=== PATIENT | male | born 1940 | race Caucasian/White ===

== ENCOUNTER 2024-07-14 16:28 | Inpatient (IN) | payer OTHER ==
--- NOTE | 2024-07-14 17:14 | RAD REPORT ---
EXAMINATION: Head Brain Wo Cont CLINICAL INDICATION: Male, 83 years old.ataxia TECHNIQUE: Axial CT images from the skull base to the vertex without intravenous contrast. Coronal an d sagittal reformatted images were created from the data set. One or more of the following dose reduction techniques were used: Automated exposure control, adjustment of the mA and/or kV according to patient size, and/or iterative reconstruction. Unless otherwise specified, incidental findings do not require dedicated imaging follow-up. [id number]. COMPARISON: No prior exam. FINDINGS: INTRACRANIAL: No acute intracranial hemorrhage. No hydrocephalus. No mass effect or midline shift. Mo derate chronic small vessel ischemic changes.Mild cerebral atrophy. Remote appearing bilateral deep white matter and basal ganglia/thalamic lacunar infarcts as well as bilateral cerebellar infarcts. VASCULATURE: No visualized abnormalities in the arteries or dural venous sinuses. SCALP/SKULL: No calvarial fracture identified. No acute soft tissue abnormality. SINUSES: The visualized paranasal sinuses are mostly clear. No significant mastoid fluid. IMPRESSION: No definite acute intracranial abnormality. Likely remote appearing bilateral deep white matter, basa l ganglia, and cerebellar infarcts. MRI could better establish acuity if clinically indicated.
--- NOTE | 2024-07-14 17:23 | RAD REPORT ---
EXAM: Chest Single View HISTORY: 83 years Male ataxia, aphasia COMPARISON: None. FINDINGS: LUNGS/PLEURA: The lungs are clear. No pleural effusions or pneumothorax. No pulmonary edema. CARDIAC/MEDIASTINUM: The cardiac silhouette is within normal limits. UPPER ABDOMEN: No significant abnormality. BONES: No acute abnormality. LINES/TUBES/OTHER: N/A IMPRESSION: No evidence of acute cardiopulmonary disease.
[2024-07-14 18:02] LABS: Absolute Eosinophils 0.2 K/uL (0-0.5); Absolute Lymphocytes (CBC) 1.2 K/uL (0.7-4.9); Absolute Monocytes 0.7 K/uL (0.1-1.3); Absolute Neutrophil 4.8 K/uL (1.8-8.0); Basophils % 0.7 % (0-1.3); Eosinophils % 2.3 % (0-4.4); Hematocrit 40.4 % (39.6-49.0); Hemoglobin 13.8 g/dL (13.6-17.9); Lymphocytes % 17.5 % (15.3-44.8); MCH 32.4 pg (27.0-35.0); MCHC 34.2 g/dL (32.0-36.0); MCV 94.5 fL (80-100); Monocytes % 9.6 % (3.3-12.3); Neutrophils % 69.9 % (41.7-73.7); Nucleated Red Blood Cells % 0.1 % (0-0); Platelets 200 thou/uL (152-406); RBC Red Blood Cell Count 4.27 M/uL (4.33-5.43); Red Cell Distribution Width 13.6 % (12.1-15.2)
[2024-07-14 18:14] LABS: PT Prothrombin Time 10.8 SECONDS (10-13.0); PTT, Activated Partial Thromb 31.2 SECONDS (27.2-37.4); Protime INR 0.94
[2024-07-14 18:20] LABS: Anion Gap 7.4 mEq/L (5.0-15.0); Potassium 4.4 mEq/L (3.5-5.1); Troponin High Sensitivity 18.8 pg/mL (<58.9)
--- NOTE | 2024-07-14 18:44 | EDPHYS ---
Physician Documentation [facility] Name: Tristin Sanders Age: 83 yrs Sex: Male : 1940 Arrival Date: 07/14/2024 Time: 16:28 Bed 24 Private MD: ED Physician Black Ruiz HPI: 07/14 16:43 This 83 yrs old Male presents to ER via Ambulatory with complaints of Slurred Speech, ms3 Trouble Walking. 16:43 83-year-old male with past medical history of diabetes presents to the emergency ms3 department for slurred speech and trouble walking that has been ongoing for 4 to 5 days. Patient denies pain. Patient denies nausea or vomiting. Patient's states they called their primary care physician, Dr. Cage, who referred patient to the emergency department for concern of stroke.. Historical: - Allergies: 16:42 No Known Allergies; ld1 - PMHx: 16:42 Diabetes mellitus; ld1 - Immunization history:: Adult Immunizations up to date. - Infectious Disease History:: Denies. - Social history:: Smoking status: Patient denies any tobacco usage or history of. ROS: 16:43 Constitutional: Negative for fever, and chills. Cardiovascular: Negative for chest ms3 pain, and palpitations. Respiratory: Negative for shortness of breath, cough, wheezing, and pleuritic chest pain, Abdomen/GI: Negative for abdominal pain, nausea, vomiting, diarrhea, and constipation, Skin: Negative for injury, rash, and discoloration, 16:43 Neuro: Positive for Ataxia, Exam: 16:43 Constitutional: This is a well developed, well nourished patient who is awake, alert, ms3 and in no acute distress. Cardiovascular: Regular rate and rhythm with a normal S1 and S2. No gallops, murmurs, or rubs. Normal PMI, no JVD. No pulse deficits. Respiratory: Lungs have equal breath sounds bilaterally, clear to auscultation and percussion. No rales, rhonchi or wheezes noted. No increased work of breathing, no retractions or nasal flaring. Abdomen/GI: Soft, non-tender, with normal bowel sounds. No distension or tympany. No guarding or rebound. No evidence of tenderness throughout. Skin: Warm, dry with normal turgor. Normal color with no rashes, no lesions, and no evidence of cellulitis. 16:43 Neuro: Orientation: to person, place, time \T\ situation. Mentation: is normal, Memory: is normal, Cerebellar function: normal finger to nose testing, Gait: is unsteady, 19:19 ECG was reviewed by the Attending Physician. ms3 Vital Signs: 16:40 BP 142 / 89; Pulse 89; Resp 18; Temp 97.3(TE); Pulse Ox 100% on R/A; Weight 68.95 kg; ld1 Height 6 ft. 1 in. ; Pain 0/10; 20:00 BP 126 / 85; Pulse 88; Resp 18; Temp 98; Pulse Ox 96% on R/A; Pain 0/10; rg5 16:40 Body Mass Index 20.05 (68.95 kg, 185.42 cm) ld1 16:40 Pain Scale: Adult ld1 20:00 Pain Scale: Adult rg5 NIH Stroke Scale Scores: 16:43 NIHSS Score: 0 ms3 20:00 NIHSS Score: 0 rg5 MDM: 16:42 Medical Screening Exam initiated ms3 19:04 Data reviewed: vital signs, nurses notes, lab test result(s), EKG, radiologic studies, ms3 and as a result, I will admit patient. Consideration of Admission/Observation Patient was admitted/placed on observation. Management of patient was discussed with the following: Hospitalist: Dr Cage. I considered the following discharge prescriptions or medication management in the emergency department Medications were administered in the Emergency Department. See MAR. Independent interpretation of the following test(s) in the Emergency Department EKG: See my EKG interpretation above. Historians other than the Patient: Family Member: Daughter. Counseling: I had a detailed discussion with the patient and/or guardian regarding the historical points, exam findings, and any diagnostic results supporting the discharge/admit diagnosis, lab results, radiology results, the need for further work-up and treatment in the hospital. ED course: Case discussed with Dr. Cage. Discussed necessity for admission with patient and his family and they understand and agree with plan. All questions were answered.. 07/14 16:42 Order name: Basic Metabolic Panel; Complete Time: 18:26 ms3 07/14 16:42 Order name: CBC with Diff; Complete Time: 18:26 ms3 07/14 16:42 Order name: High Sensitivity Troponin; Complete Time: 18:26 ms3 07/14 16:42 Order name: Protime (+inr); Complete Time: 18:26 ms3 07/14 16:42 Order name: Ptt, Activated; Complete Time: 18: ms3 07/14 18:53 Order name: Creatine Phosphokinase EDMS 07/14 18:53 Order name: Creatine Phosphokinase EDMS 07/14 18:53 Order name: Lipid Profile EDMS 07/14 18:53 Order name: Lipid Profile EDMS 07/14 18:53 Order name: Troponin High Sensitivity EDMS 07/15 10:57 Order name: Troponin High Sensitivity EDMS 07/14 16:42 Order name: CT Head Brain wo Cont; Complete Time: 17:29 ms3 07/14 16:42 Order name: CXR XRAY; Complete Time: 17: ms3 07/14 18:53 Order name: IRF Screen EDSC 07/14 16:42 Order name: Accucheck; Complete Time: 20:42 ms3 07/14 16:42 Order name: Cardiac monitoring; Complete Time: 20:42 ms3 07/14 16:42 Order name: EKG - Nurse/Tech; Complete Time: 17:58 ms3 07/14 16:42 Order name: IV Saline Lock; Complete Time: 17:57 ms3 07/14 16:42 Order name: Labs collected and sent; Complete Time: 17:57 3 07/14 16:42 Order name: NPO; Complete Time: 20:42 ms3 07/14 16:42 Order name: O2 Per Protocol; Complete Time: 20:42 ms3 07/14 16:42 Order name: O2 Sat Monitoring; Complete Time: 20:42 ms3 07/14 16:42 Order name: Stroke Swallow Screen; Complete Time: 20:42 ms3 EC:19 Rate is 86 beats/min. Rhythm is regular. QRS Capron is Normal. CT interval is normal. QRS ms3 interval is normal. Clinical impression: NSR w/ Non-specific ST/T Changes. Interpreted by me. Reviewed by me. Administered Medications: No medications were administered Disposition Summary: 07/14/24 18:43 Hospitalization Ordered Notes: Hospitalization Status: Inpatient Admission ms3 Provider: Eric Cage ms3 Condition: Stable ms3 Problem: new ms3 Symptoms: are unchanged ms3 Bed/Room Type: Standard ms3 Location: Telemetry/MedSurg (Inpatient)(07/15/24 10:56) bd Room Assignment: 427(07/15/24 10:56) bd Diagnosis - Ischemic stroke ms3 - Ataxia, unspecified ms3 - Slurred speech ms3 Forms: - Medication Reconciliation Form ms3 - SBAR form ms3 - Leadership Thank You Letter ms3 NIH Stroke Scale - NIH Stroke Score Date: 07/14/2024 Time: 16:43 Total Score = 0 10. Dysarthria (speech clarity - read or repeat words) - 0(Normal) 11. Extinction and Inattention (visual/tactile/auditory/spatial/personal) - 0(No abnormality) 1a. Level of Consciousness (LOC) - 0(Alert) 1b. Level of Consciousness (LOC) (Month \T\ Age) - 0(Both) 1c. LOC Commands (Open \T\ Closes Eyes/Box Closing Machine Operator) - 0(Both) 2. Best Gaze (Lateral Gaze Paresis) - 0(Normal) 3. Visual Field Loss - 0(No visual loss) 4. Facial Palsy - 0(Normal) 5a. Left Arm: Motor (10-second hold) - 0(No drift) 5b. Right Arm: Motor (10-second hold) - 0(No drift) 6a. Left Leg: Motor (5-second hold - always test supine) - 0(No drift) 6b. Right Leg: Motor (5-second hold - always test supine) - 0(No drift) 7. Limb Ataxia (finger/nose \T\ heel/cervantes - test with eyes open) - 0(Absent) 8. Sensory Loss (pinprick arms/legs/face) - 0(Normal) 9. Best Language: Aphasia (description/naming/reading) - 0(No aphasia) Initials: ms3 NIH Stroke Scale - NIH Stroke Score Date: 07/14/2024 Time: 20:00 Total Score = 0 10. Dysarthria (speech clarity - read or repeat words) - 0(Normal) 11. Extinction and Inattention (visual/tactile/auditory/spatial/personal) - 0(No abnormality) 1a. Level of Consciousness (LOC) - 0(Alert) 1b. Level of Consciousness (LOC) (Month \T\ Age) 1c. LOC Commands (Open \T\ Closes Eyes/Box Closing Machine Operator) - 0(Both) 2. Best Gaze (Lateral Gaze Paresis) - 0(Normal) 3. Visual Field Loss - 0(No visual loss) 4. Facial Palsy - 0(Normal) 5a. Left Arm: Motor (10-second hold) - 0(No drift) 5b. Right Arm: Motor (10-second hold) - 0(No drift) 6a. Left Leg: Motor (5-second hold - always test supine) - 0(No drift) 6b. Right Leg: Motor (5-second hold - always test supine) - 0(No drift) 7. Limb Ataxia (finger/nose \T\ heel/cervantes - test with eyes open) - 0(Absent) 8. Sensory Loss (pinprick arms/legs/face) - 0(Normal) 9. Best Language: Aphasia (description/naming/reading) - 0(No aphasia) Initials: rg5 Signatures: Dispatcher [employer] EDMS Lazara Sotelo Marcus, DO DO ms3 Ashlee Ruiz RN RN ld1 Omayra Regalado RN RN vc1 Corrections: (The following items were deleted from the chart) 16:42 16:42 PMHx: None; ld1 ld1 16:43 16:43 BASIC METABOLIC PANEL+C.LAB.BRZ ordered. EDMS EDMS 16:43 16:43 CBC+H.LAB.BRZ ordered. EDMS EDMS 16:43 16:43 Troponin High Sensitivity+C.LAB.BRZ ordered. EDMS EDMS 16:43 16:43 PROTIME (+INR)+COAG.LAB.BRZ ordered. EDMS EDMS 16:43 16:43 PTT, ACTIVATED+COAG.LAB.BRZ ordered. EDMS EDMS 16:43 16:43 Head Brain Wo Cont+CT.RAD.BRZ ordered. EDMS EDMS 16:43 16:43 Chest Single View+RAD.RAD.BRZ ordered. EDMS EDMS 21:03 18:43 Telemetry/MedSurg (Inpatient) ms3 vc1 21:03 18:43 ms3 vc1 07/15 10:56 07/14 21:03 [facility] ER HOLD vc1 bd 07/15 10:56 07/14 21:03 ERHOLD- vc1 bd
--- NOTE | 2024-07-14 18:44 | ER ---
Nurse's Notes [facility] Name: Tristin Sanders Age: 83 yrs Sex: Male : 1940 Arrival Date: 07/14/2024 Time: 16:28 Bed 24 Private MD: Diagnosis: Ischemic stroke;Ataxia, unspecified;Slurred speech Presentation: 07/14 16:41 Chief complaint: Spouse and/or significant other states: 3 days ago patient became ld1 wobbly and falling down - speech became slurred. Coronavirus screen: At this time, the client does not indicate any symptoms associated with coronavirus-19. Ebola Screen: No symptoms or risks identified at this time. Initial Sepsis Screen: Does the patient meet any 2 criteria? No. Patient's initial sepsis screen is negative. Does the patient have a suspected source of infection? No. Patient's initial sepsis screen is negative. Risk Assessment: Do you want to hurt yourself or someone else? Patient reports no desire to harm self or others. Onset of symptoms was July 14, 2024. 16:41 Method Of Arrival: Ambulatory ld1 16:41 Acuity: MELISA 2 ld1 20:00 No acute neurological deficit is noted. rg5 Triage Assessment: 16:45 The onset of the patients symptoms was July 11, 2024 at 15:00. General: Appears in no ld1 apparent distress. comfortable, Behavior is calm, cooperative, appropriate for age. Pain: Denies pain. EENT: No signs and/or symptoms were reported regarding the EENT system. Neuro: Level of Consciousness is awake, alert, obeys commands, Oriented to person, place, time, situation, Reports weakness. Cardiovascular: Capillary refill < 3 seconds Patient's skin is warm and dry. Respiratory: Airway is patent Respiratory effort is even, unlabored. GI: Abdomen is flat, non-distended. : No signs and/or symptoms were reported regarding the genitourinary system. Derm: No signs and/or symptoms reported regarding the dermatologic system. Musculoskeletal: No signs and/or symptoms reported regarding the musculoskeletal system. Historical: - Allergies: 16:42 No Known Allergies; ld1 - PMHx: 16:42 Diabetes mellitus; ld1 - Immunization history:: Adult Immunizations up to date. - Infectious Disease History:: Denies. - Social history:: Smoking status: Patient denies any tobacco usage or history of. Screenin:00 [facility] ED Fall Risk Assessment (Adult) History of falling in the last 3 months, rg5 including since admission Yes- single mechanical fall (1 pt) Confusion or Disorientation No (0 pts) Intoxicated or Sedated No (0 pts) Impaired Gait Yes (1 pt) Mobility Assist Device Used Yes (1 pt) Altered Elimination No (0 pt) Score/Fall Risk Level 3 or more points = High Risk Oriented to surroundings, Maintained a safe environment, Educated pt \T\ family on fall prevention, incl call for assistance when getting out of bed, Hourly rounding (assess needs \T\ fall precautionary measures) done, Used ambulatory aids as needed (educated on \T\ assisted with). Abuse screen: Denies threats or abuse. Nutritional screening: No deficits noted. 20:00 Tuberculosis screening: No symptoms or risk factors identified. rg5 Assessment: 20:00 VAN Scoring: Arm Drift: Patients demonstrates NO arm weakness. Patient is VAN Negative. rg5 Visual Disturbance: No visual disturbance noted. Aphasia: No aphasia noted. [place] Swallow Protocol 3 oz Water Swallow Challenge:. 20:00 [place] Swallow Protocol Exclusion Criteria: Exclusion Criteria Result: Brief Cognitive rg5 Screen What is your name? Normal, Where are you right now? Normal, What year is it? Normal. Oral Mechanism Examination Facial Symmetry: Normal, Motion: Normal, Lip Closure: Normal, Oral Mechanism Result: Normal. Result: PASS MD Notified: Shanna Brown MD. Vital Signs: 16:40 BP 142 / 89; Pulse 89; Resp 18; Temp 97.3(TE); Pulse Ox 100% on R/A; Weight 68.95 kg; ld1 Height 6 ft. 1 in. ; Pain 0/10; 20:00 BP 126 / 85; Pulse 88; Resp 18; Temp 98; Pulse Ox 96% on R/A; Pain 0/10; rg5 16:40 Body Mass Index 20.05 (68.95 kg, 185.42 cm) ld1 16:40 Pain Scale: Adult ld1 20:00 Pain Scale: Adult rg5 NIH Stroke Scale Scores: 16:43 NIHSS Score: 0 ms3 20:00 NIHSS Score: 0 rg5 ED Course: 16:31 Patient arrived in ED. cj3 16:32 Black Ruiz DO is Attending Physician. ms3 16:42 Triage completed. ld1 16:45 Arm band placed on right wrist. ld1 16:59 CT Head Brain wo Cont In Process Unspecified. EDMS 17:02 Ashlee Ruiz, RN is Primary Nurse. ld1 17:21 CXR XRAY In Process Unspecified. EDMS 17:57 Basic Metabolic Panel Sent. bc6 17:57 CBC with Diff Sent. bc6 17:58 High Sensitivity Troponin Sent. bc6 17:58 Protime (+inr) Sent. bc6 17:58 Ptt, Activated Sent. bc6 17:58 Initial lab(s) drawn, by me, sent to lab. EKG done, by ED staff, reviewed by Black Ruiz DO. Inserted saline lock: 20 gauge in left forearm, using aseptic technique. Blood collected. Flushed with 10 mL NS. 18:43 Eric Cage MD is Hospitalizing Provider. ms3 19:37 Ramez Duran, RN is Primary Nurse. rg5 20:00 Patient has correct armband on for positive identification. Placed in gown. Bed in low rg5 position. Call light in reach. Side rails up X 1. Provided Education on: needs for admit. Door closed. Noise minimized. Verbal reassurance given. 20:00 No provider procedures requiring assistance completed. Patient admitted, IV remains in rg5 place. intact, No redness/swelling at site. Administered Medications: No medications were administered Medication: 20:00 VIS not applicable for this client. rg5 Outcome: 18:43 Decision to Hospitalize by Provider. ms3 20:00 Admitted to ER Hold. Please see [facility] for further documentation. rg5 20:00 Condition: stable 20:00 Instructed on the need for admit, 07/15 13:27 Patient left the ED. ll1 NIH Stroke Scale - NIH Stroke Score Date: 07/14/2024 Time: 16:43 Total Score = 0 10. Dysarthria (speech clarity - read or repeat words) - 0(Normal) 11. Extinction and Inattention (visual/tactile/auditory/spatial/personal) - 0(No abnormality) 1a. Level of Consciousness (LOC) - 0(Alert) 1b. Level of Consciousness (LOC) (Month \T\ Age) - 0(Both) 1c. LOC Commands (Open \T\ Closes Eyes/Restaurant Maintenance Technician) - 0(Both) 2. Best Gaze (Lateral Gaze Paresis) - 0(Normal) 3. Visual Field Loss - 0(No visual loss) 4. Facial Palsy - 0(Normal) 5a. Left Arm: Motor (10-second hold) - 0(No drift) 5b. Right Arm: Motor (10-second hold) - 0(No drift) 6a. Left Leg: Motor (5-second hold - always test supine) - 0(No drift) 6b. Right Leg: Motor (5-second hold - always test supine) - 0(No drift) 7. Limb Ataxia (finger/nose \T\ heel/cervantes - test with eyes open) - 0(Absent) 8. Sensory Loss (pinprick arms/legs/face) - 0(Normal) 9. Best Language: Aphasia (description/naming/reading) - 0(No aphasia) Initials: ms3 NIH Stroke Scale - NIH Stroke Score Date: 07/14/2024 Time: 20:00 Total Score = 0 10. Dysarthria (speech clarity - read or repeat words) - 0(Normal) 11. Extinction and Inattention (visual/tactile/auditory/spatial/personal) - 0(No abnormality) 1a. Level of Consciousness (LOC) - 0(Alert) 1b. Level of Consciousness (LOC) (Month \T\ Age) 1c. LOC Commands (Open \T\ Closes Eyes/Restaurant Maintenance Technician) - 0(Both) 2. Best Gaze (Lateral Gaze Paresis) - 0(Normal) 3. Visual Field Loss - 0(No visual loss) 4. Facial Palsy - 0(Normal) 5a. Left Arm: Motor (10-second hold) - 0(No drift) 5b. Right Arm: Motor (10-second hold) - 0(No drift) 6a. Left Leg: Motor (5-second hold - always test supine) - 0(No drift) 6b. Right Leg: Motor (5-second hold - always test supine) - 0(No drift) 7. Limb Ataxia (finger/nose \T\ heel/cervantes - test with eyes open) - 0(Absent) 8. Sensory Loss (pinprick arms/legs/face) - 0(Normal) 9. Best Language: Aphasia (description/naming/reading) - 0(No aphasia) Initials: rg5 Signatures: Dispatcher [employer] EDSaranya Perez, RN RN ll1 Black Ruiz, DO LEMONS ms3 Ashlee Ruiz RN RN ld1 Maria T Godoy 6 Ramez Duran RN RN rg5 Layne Holley cj3 Corrections: (The following items were deleted from the chart) 07/14 16:42 16:42 PMHx: None; ld1 ld1 07/15 02:43 07/14 20:00 NIHSS Score: 1 rg5 nati5
[2024-07-14] MEDS: NA CHLORIDE 0.9% 1,000 ML IV SCH (22:03)
[2024-07-14] MEDS ORDERED: NA CHLORIDE 0.9% 1,000 ML ONE (22:05)
[2024-07-15] MEDS: CLOPIDOGREL 75 MG TABLET PO SCH (09:00)
[2024-07-15] MEDS: ASPIRIN EC 81 MG TAB PO SCH (09:00)
[2024-07-15] MEDS: FOLIC ACID 1 MG TABLET PO SCH (09:00)
[2024-07-15] MEDS ORDERED: CLOPIDOGREL 75 MG TABLET ONE (09:57)
[2024-07-15] MEDS ORDERED: FOLIC ACID 1 MG TABLET ONE (09:58)
[2024-07-15] MEDS ORDERED: ASPIRIN EC 81 MG TAB PO ONE (09:58)
[2024-07-15 10:57] LABS: Troponin High Sensitivity 16.1 pg/mL (<58.9)
--- NOTE | 2024-07-15 12:14 | P.HP ---
Patient History Date of Service: 07/15/24 Reason for admission: APHASIA, UNSTEADY GAIT History of Present Illness: CHELLE IS A DIABETIC WITH HTN IN GOOD CONTROL. HE HAS HAD EXPRESSION ISSUES WITH SPEECH AND UNSTEADY GAIT. HE REFUSED TO GO TO ER UNTIL FAMILY CALLED HERE AND I TALKED TO HIM. HE IS ALREADY HAVING SS FOR ABOUT A WEEK. HE IS STABLE AND THE SPEECH IS BACK TO NORMAL NOW. Allergies No Known Allergies Allergy (Unverified 07/14/24 20:28) Home Medications: Losartan Potassium 50 mg PO DAILY 07/15/24 Metformin HCl [Glucophage] 500 mg PO BIDWM 07/15/24 - Social History Smoking Status: Never smoker Review of Systems 10-point ROS is otherwise unremarkable Physical Examination - Vital Signs Temperature: 98 F Blood Pressure: 145/82 Pulse: 78 Respirations: 17 Pulse Ox (%): 98 - Physical Exam General: Alert, In no apparent distress HEENT: Atraumatic, PERRLA, Mucous membr. moist/pink, EOMI, Sclerae nonicteric Neck: Supple, 2+ carotid pulse no bruit, No LAD, Without JVD or thyroid abnormality Respiratory: Clear to auscultation bilaterally, Normal air movement Cardiovascular: Regular rate/rhythm, Normal S1 S2 Gastrointestinal: Normal bowel sounds, No tenderness Musculoskeletal: No tenderness Integumentary: No rashes Neurological: Normal gait, Normal speech, Normal strength at 5/5 x4 extr, Normal tone, Normal affect Lymphatics: No axilla or inguinal lymphadenopathy - Studies Laboratory Data (last 24 hrs) 07/14/24 07/14/24 07/14/24 17:50 17:50 17:50 WBC 6.80 Hgb 13.8 Hct 40.4 Plt Count 200 PT 10.8 INR 0.94 APTT 31.2 Sodium 138 Potassium 4.4 BUN 21 H Creatinine 0.93 Glucose 151 H Assessment and Plan - Problems (Diagnosis) (1) Expressive aphasia Current Visit: Yes Status: Acute Plan: ASA AND PLAVIX CONSULT DR. Cobian MRI STROKE PROTOCOL. L SIDE BRAIN STROKE MAY BE FOUND. (2) Unstable gait Current Visit: Yes Status: Acute (3) Diabetic vasculopathy Current Visit: Yes Status: Acute - Advance Directives Does patient have a Living Will: No Does patient have a Durable POA for Healthcare: No
[2024-07-15 12:17] VITALS: O2SAT 98
--- NOTE | 2024-07-15 12:35 | EKG ---
Test Date: 2024-07-14 Test Time: 18:06:59 Reading Intervention Teacher: NEFTALI MEASUREMENT RESULTS: Intervals: Rate: 86 NH: 158 QRSD: 88 QT: 382 QTc: 457 [place]: P: 31 NH: 158 QRS: -16 T: 71 INTERPRETIVE STATEMENTS: Sinus rhythm with premature supraventricular complexes Nonspecific ST and T wave abnormality Abnormal ECG Compared to ECG 01/05/2002 12:36:00 Atrial premature complex(es) now present ST (T wave) deviation now present Electronically Signed On 07-15-24 12:33:39 CDT by Masoud Holguin
--- NOTE | 2024-07-15 14:49 | RAD REPORT ---
EXAMINATION: Brain Wo Cont CLINICAL INDICATION: Male, 83 years old. slurred speech TECHNIQUE: Multiplanar multisequence MR images of the brain were obtained without intravenous contras t. Unless otherwise specified, incidental findings do not require dedicated imaging follow-up. [id number]. COMPARISON: Same-day head CT FINDINGS: INTRACRANIAL: Multiple foci of acute infarct in the right cerebellar hemisphere. No other acute infar cts identified. There is associated T2/FLAIR hyperintensity. There is low signal on ADC. No significant mass effect or midline shift.No hydrocephalus. Moderate chronic small vessel ischemic ch anges.Mild cerebral atrophy. Remote bilateral basal ganglia and deep white matter lacunar infarcts. Tiny remote left cerebellar infarcts. VASCULATURE: Normal signal voids in the larger intracranial arteries and dural venous sinuses. SINUSES: The paranasal sinuses are predominantly clear.No mastoid effusions. BONE: The marrow signal pattern is within normal limits. IMPRESSION: Acute infarcts present in the right cerebellar hemisphere. No other acute infarcts identified. Sequela of remote infarcts as well as moderate chronic small vess el ischemic changes.
[2024-07-15] MEDS ORDERED: cloNIDine HCL 0.1 MG TAB PO PRN (15:18)
[2024-07-15 16:29] VITALS: BP 140/84; TEMP 97.8
[2024-07-15] MEDS: METFORMIN HCL 500 MG TAB PO SCH (16:45)
[2024-07-15] MEDS ORDERED: ROSUVASTATIN 10 MG TAB PO SCH (21:00)
--- NOTE | 2024-07-16 01:39 | CON ---
Reason For Consultation: Consultation called because of a stroke. History Of Present Illness: Mr. Sanders is an 83-year-old patient with hypertension and diabetes [facility], who is not on anti-platelet medications, who was at home 2 days ago and he developed difficulty w ith his balance, coordination, and speech. He initially refused to go to the emergency room, but his family called Dr. Cage, his primary care physician, and he was advised to come to the emergency [facility]. Symptoms have been going on for a total of about a week off and on. However, at the time of arri andrew to the emergency room, his speech returned, but still had some incoordination and balance difficu lty. His CT scan of the head done on 07/14/2024 at 1642 hours showed no definite acute intracranial abnormalities, likely a remote appearing bilateral deep white matter and basal ganglia and cerebellar infarcts could be seen. The brain MRI done the following day identified acute infarcts in the right cerebellar hemisphere. No other acute infarcts were identified. There were sequelae of remote infa rcts as well as moderate chronic small vessel ischemic disease identified. These were seen again in bilateral basal ganglia and a deep white matter and also a small area in the left cerebellum with the acute stroke in the right cerebellum and there were multiple foci. The electrocardiogram showed sinus rhythm with premature ventricular complex, nonspecific ST and T-wa ve abnormalities. Laboratory Studies: Show an essentially unremarkable complete blood count differential and normal IN R of 0.94. Lipid panel was normal. LDL 51, HDL 55, cholesterol to HDL ratio 2.27. Sodium, potassiu m chloride all normal. BUN 21, creatinine 0.92, glucose ranged 105 to 151, calcium 9.0. His troponi n 1 was normal at 16.1, triglycerides 94. Allergies: NO KNOWN DRUG ALLERGIES. Past Medical History: As noted above. Medications: Since hospitalized, he is now on aspirin 81 mg daily, Plavix 75 mg daily, folic acid 1 mg daily. He did have, while hospitalized also, metformin 500 mg twice daily, Crestor 10 mg at [facility], Cozaar 50 mg daily. Family History: Noncontributory. Social History: No alcohol, tobacco, or IV drug use. The patient lives at home with family includin g . Review of Systems: Again, no findings aside from difficulty with speech, balance, coordination, which have improved. De nies any myalgias, arthralgias, rash or psychiatric issues. Physical Examination: Vital Signs: Blood pressure is 140/84, pulse 79, respiratory rate 16, temperature 97.8, oxygen satur ation 97%, weight 152 pounds, height 6 feet 1 inch, BMI 20. General: Mr. Sanders is doing very well. HEENT: He is normocephalic, atraumatic. Sclerae are anicteric. Oropharynx is pink and moist. Neck: Supple. Chest: Clear. Heart: Regular. Extremities: Show no significant clubbing, cyanosis, or edema. Neurological: He is alert oriented to person, place, time, situation. Follows all commands appropri ately. His cranial nerves show no focal deficits. Coordination intact in upper and lower extremitie s. Very subtle dysmetria noted in the right upper extremity, otherwise intact. Left lower extremity , normal [id number]. In terms of motor, he has full strength 5/5 proximally and distally in upper and lower extremities. Sensation intact in upper and lower extremities with mild stocking-glove loss . Reflexes symmetric in upper and lower extremities. Gait normal stride, stance, and arm swing. He has mild difficulty with tandem gait. Assessment And Plan: Mr. Sanders is an 83-year-old patient with stroke risk factors, hypertension, and diabetes mellitus well controlled, dyslipidemia. The patient had multiple small strokes, posterior c irculation, but also in the basal ganglia, these strokes are likely to be related to hypertension as they are small vessel ischemic strokes. He should be maintained on aspirin and Plavix along with fol ic acid, statin, and mild permissive hypertension for the next week. The patient may benefit from so pa outpatient physical therapy. After his discharge, he should follow up in Dr. Umaña's clinic in 1 month and so plan will be to discharge today, follow up in Dr. Umaña's clinic in a month. Cont inue medications as noted above. The patient was advised on diet and exercise and hydration modifica tions along with rest and supplements to reduce his risk of additional strokes. LB/MODL Voice ID: [id number] Report ID: [id number]
[2024-07-16] MEDS ORDERED: LOSARTAN POTASSIUM 50 MG TABLET PO SCH (09:00)
[2024-07-16] MEDS ORDERED: FOLIC ACID 1 MG TABLET PO SCH (09:00)
[2024-07-16] MEDS ORDERED: CLOPIDOGREL 75 MG TABLET PO SCH (09:00)
[2024-07-16] MEDS ORDERED: ASPIRIN 81 MG CHEWABLE TABLET PO SCH (09:00)
== END 2024-07-15 18:27 | disposition home or self-care (01) | DRG 66 ==
LOC: ER 16:28 → ERHOLD 18:48 → 4TH 07-15 11:44
PROVIDERS: ADMIT Internal Medicine; ATTEND Internal Medicine
DX: I63.9 Cerebral infarction, unspecified (principal); E11.9 Type 2 diabetes mellitus without complications; E78.5 Hyperlipidemia, unspecified; R47.01 Aphasia; R29.700 NIHSS score 0; R27.0 Ataxia, unspecified; Z79.84 Long term (current) use of oral hypoglycemic drugs; Z79.899 Other long term (current) drug therapy
CPT/HCPCS: 36415; 70450; 70551; 71045; 80048; 80061; 82550; 82947; 84484; 85025; 85610; 85730; 93005; 97112; 97116; 97161; 97530; 99285; J7030

== ENCOUNTER 2024-12-28 15:30 | Inpatient (IN) | payer OTHER ==
[2024-12-28] MEDS ORDERED: MAGNESIUM HYDROXIDE 8% 30 ML PO PRN (20:29)
[2024-12-28] MEDS: ASPIRIN 325 MG TAB PO SCH (20:38)
[2024-12-28] MEDS: ROSUVASTATIN 10 MG TAB PO SCH (21:00)
[2024-12-28] MEDS: FAMOTIDINE 20 MG TAB PO SCH (21:00)
[2024-12-28] MEDS ORDERED: MEMANTINE HCL 10 MG TABLET ONE (21:05)
[2024-12-28 23:18] LABS: Urine Microscopic Reflex YN NO UMIC
[2024-12-29 06:49] LABS: Absolute Lymphocytes (CBC) 1.8 K/uL (0.7-4.9); Hematocrit 34.6 % (39.6-49.0); Hemoglobin 12.1 g/dL (13.6-17.9); MCH 33.1 pg (27.0-35.0); MCHC 34.9 g/dL (32.0-36.0); MCV 94.9 fL (80-100); MPV 9.9 fL (7.6-11.3); Nucleated RBC Absolute Count 0.0 (0-0); Nucleated Red Blood Cells % 0.0 % (0-0); RBC Red Blood Cell Count 3.64 M/uL (4.33-5.43); White Blood Count 8.10 thou/uL (4.3-10.9)
[2024-12-29 07:11] LABS: Albumin 3.2 g/dL (3.4-5.0); Anion Gap 10.1 mEq/L (5.0-15.0); BUN Blood Urea Nitrogen 35.0 mg/dL (7-18); Glucose Level 89.0 mg/dL (74-106); Magnesium 2.1 mg/dL (1.6-2.4); Potassium 4.1 mEq/L (3.5-5.1); Prealbumin 19.2 mg/dL (20-40)
[2024-12-29] MEDS ORDERED: FAMOTIDINE 20 MG TAB PO SCH (08:00)
[2024-12-29] MEDS: MYRBETRIQ 50 MG PO SCH (08:00)
[2024-12-29] MEDS: FOLIC ACID 1 MG TABLET PO SCH (08:39)
[2024-12-29] MEDS: GLIMEPIRIDE 2 MG TABLET PO SCH (08:39)
[2024-12-29] MEDS: ESCITALOPRAM 20 MG TAB PO SCH (08:39)
[2024-12-29] MEDS: VITAMIN D 1000 UNIT TAB PO SCH (08:40)
[2024-12-29] MEDS: LOSARTAN POTASSIUM 50 MG TABLET PO SCH (08:40)
[2024-12-29] MEDS: CLOPIDOGREL 75 MG TABLET PO SCH (08:40)
[2024-12-29] MEDS: predniSONE 10 MG TAB PO SCH (08:40)
[2024-12-29] MEDS: MEMANTINE HCL 10 MG TABLET PO SCH (08:40)
[2024-12-29] MEDS ORDERED: ASPIRIN 325 MG TAB PO SCH ×2 (17:00)
--- NOTE | 2024-12-30 00:42 | HP ---
Date of Admission: 12/28/2024 Time: 1 p.m. Chief Complaint: "I had a stroke, I need to get strong, get back home." History Of Present Illness: Mr. Sanders is an 84-year-old patient with stroke risk factors, dyslipidemi a, aortic stenosis, aortic aneurysm in his thoracic region, aortic regurgitation, pulmonary hypertens ion, diabetes mellitus with neuropathy, who began experiencing loss of balance, incoordination, and w as found to have the stroke back in June of 2024. He did recover very well and subsequently had hea rt valve replacement, after which he had even worse gait, balance, coordination, and memory loss. He was seen by neurologist, Dr. Mcgrath, with suspected recurrent infarcts. Brain MRI on December 18, 2024 , confirmed the left middle cerebral artery infarct. It is noted that following his cardiac replacem ent, he attempted participating in cardiac rehab, but was unable to tolerate the program due to gait instability and balance deficits. He, however, will present enrolled in outpatient speech and physic al therapy to address his cognitive issues and steadiness of gait, balance, coordination. Prior to t he patient's worsening and strokes, he was fully independent with mobilization, all activities of audie ly living, performed without assistive device, did yard work with his around the house enrolled without difficulty. However, currently at home, requires 24/7 supervision, ambulate with a walker im proper use contributes to frequent falls ongoing and family notes several times weekly. He has episo yobany of urinary incontinence, requiring assistance for his hygiene and clothing changes. Given his si gnificant functional decline after going home, ongoing gait, balance, instability, and cognitive diff iculty with falls, he is referred for inpatient rehabilitation and is now admitted to the inpatient r ehabilitation unit for physical, occupational, and speech therapy to help him return towards his prio r level of functioning and reduce risk of hospitalization. If the patient is to be at home and kia nue therapy via Home Health, chances are very high. He will continue to fall and end up with fractur e. So, inpatient rehabilitation is necessary for his safe return home after he receives good strong therapy and his comorbid conditions are managed. Past Medical History: Includes dyslipidemia, low vitamin D level, carotid artery plaque, aortic sten osis and aneurysm, diabetes mellitus, diabetic neuropathy, pulmonary hypertension, erectile dysfuncti on. Allergies: NO KNOWN DRUG ALLERGIES. Medications: Aspirin 325 mg at bedtime, vitamin D 1000 units daily, Plavix 75 mg daily, Lexapro 10 m g daily, Pepcid 20 mg at bedtime, folic acid 1 mg daily, Amaryl 2 mg at breakfast, Cozaar 50 mg daily , milk of magnesia 30 mL daily, Namenda 5 mg twice daily, Deltasone 10 mg daily, Crestor 20 mg at bed time. Laboratory Studies: White blood cell count 8.1, hemoglobin 12.1, platelets 157. Sodium 141, potassi um 4.1, chloride 108, carbon dioxide 27, BUN 25, creatinine 0.78, glucose ranged from 87 to 194, hemo globin A1c of 6.2, calcium 8.4, magnesium 2.1, albumin 3.2, prealbumin 19.2. Urinalysis completely n ormal done on 12/28/2024. X-ray/imaging: Brain MRI done on 12/18/2024 shows a new small infarct in the left MCA territory. Th ere are multiple chronic infarcts with ischemic changes. Ventricles are mildly enlarged due to atrop hy of brain. Family History: Noncontributory. Social History: The patient lives with in a single-story house and does not smoke tobacco cigar ettes, drink alcoholic beverages, or use illicit drugs. Current Level Of Functioning: Currently, his eating is at supervision, grooming is at setup assistan ce, bathing supervision, upper body dressing supervision, lower body dressing supervision, toileting supervision, transfer from bed, chair, wheelchair at supervision level, ambulation supervision for 10 0 feet. Review of Systems: No fevers, chills, nausea, vomiting, myalgias, arthralgias, rash, headache, or psychiatric issues. Physical Examination: Vital Signs: Blood pressure 159/83, pulse 83, respiratory rate 18, temperature 97.9, oxygen saturati on 94%, and his height 6 feet, weight 148 pounds, BMI 20.1. General: Mr. Sanders is sitting comfortably in his hospital bed. He appears to be in no acute distress . HEENT: He does appear normocephalic, atraumatic. His sclerae are anicteric. Oropharynx is moist. Neck: Supple. Chest: Clear. Heart: Regular. Extremities: No significant edema, cyanosis, or clubbing noted in the lower extremities. Neurologic: Despite his stroke, he does not have significant weakness. There is some incoordination noted in his upper and lower extremities. Rehab And Medical Assessment And Plan: Mr. Sanders is an 84-year-old patient, admitted to the inpatient rehabilitation unit with impairment category 01, stroke. Impairment group code 01.1, left body invo lvement, right brain. Etiologic diagnosis, cerebral infarction involving the right posterior cerebra l artery. His comorbid conditions include decreased mobility, decreased physical functioning, hypert ension, dyslipidemia, diabetes mellitus, diabetic peripheral neuropathy. He has aortic valve stenosi s, aortic aneurysm, carotid plaque, diabetic autonomic dysfunction, and pulmonary hypertension. Plan: He will have physical, occupational, and speech therapy 3.5 hours, 5 of 7 days. He will have his comorbid condition medications by Dr. Cage to be continued. Those include aspirin and Plavix. He has Amaryl, folic acid, Pepcid, Lexapro in addition to Cozaar, memantine 5 mg twice daily, prednis one 10 mg daily, Crestor 20 mg at bedtime. Comorbidities That Are Impacting Rehabilitation: He does have some significant impulsivity and incoo rdination, which puts him at high risk of falling and result in fractures. He does have aspirin and Plavix on board, maybe switch to Eliquis and aspirin for stroke and DVT risk reduction, has risk of a spiration pneumonia given his stroke. Aspiration precautions will be at all times continued and use incentive spirometry to minimize the risk of a pneumonia. Fall precautions at all times, bed alarm a nd chair alarm may be used in place if need be. Due to cognitive issues, may require a facility with a memory care unit at discharge. However, the plan or goal will be for him to go home with and continue therapy via Home Health. Rehab Specific Plan: Mr. Sanders will have physical, occupational, and speech therapy 3.5 hours, 5 of 7 days, to improve his ability to transfer from bed to chair, to wheelchair, to get on and off toilet, in and out of shower, dress upper and lower body, donning and doffing footwear. He will have occupa tional therapy to help with all of his activities of daily living to do safely and speech will help h im with his judgment, thinking, processing, his safety awareness, his communication, and sequencing o f events to be safe. Mr. Sanders has a good understanding of the process of admission to the inpatient rehabilitation unit an d how he will benefit from physical, occupational, and speech therapy. He will have 24 hours a day, 7 days a week, skilled rehabilitation and nursing, daily physician evaluation and management, and select specialty hospital services evaluation and management for discharge planning, home equipment, and to continue therap y after discharge. If need be, a hospitalist will be called to assist with his medical management, b az Dr. Cage is currently on board. Barriers To Discharge: Again, issues of poor safety awareness and judgment mainly to falls may place the patient at high risk of going home and may have to go to a long-term or a facility with a memory care unit depending on how well he is doing. Length Of Stay: About 10 days. Disposition: Expected to be home to continue with therapy via Home Health and family's help. Prognosis: Good. Code Status: Full code. Rehab Specific Goals: 1. Become independent with upper and lower body dressing and donning and doffing footwear. 2. Independently perform all activities of daily living. 3. Independently ambulate 250 feet with a rolling walker. Mobilize a wheelchair 250 feet and up and down 10 steps with bilateral handrails. 4. With supervision perform cognitive functioning. The above goals were reviewed with Mr. Sanders and he is in agreement. By signing this document, I acknowledge I personally performed a full physical examination on Mr. Gustavo christiansen no later than 24 hours after his admission to the inpatient rehabilitation unit and determined that he is able to tolerate the above course of treatment at an intensive level for a reasonable period o f time. A detailed individualized plan of care for him will be completed by hospital day 4 based on the preadmission screen, history and physical, and therapy evaluations. BETTY/ELSA Voice ID: [id number]
[2024-12-30] MEDS ORDERED: POLYETHYL GLY 3350 17 GM/DOSE PO PRN (05:04)
[2024-12-30] MEDS ORDERED: MAGNESIUM HYDROXIDE 8% 30 ML PO PRN (05:05)
[2024-12-30] MEDS: INSULIN REGULAR (HUMAN) 100 UNIT/ML SQ SCH (06:52)
[2024-12-30] MEDS: MIRABEGRON 50 MG PO SCH (09:04)
[2024-12-30] MEDS: APIXABAN 2.5 MG TABLET PO SCH (20:19)
--- NOTE | 2024-12-30 22:32 | PN ---
Date of Progress Note: 12/30/2024 Time: 1:10. Subjective: Mr. Sanders is resting in between therapy sessions. He has no new complaints. He is very happy with his therapy and was working with therapist. Still has significant hearing difficulties, _ very close to his right ear and shouts, then he hears very well. He is doing very-very wel l with his therapy. Objective: No fevers, chills, nausea, vomiting, myalgias, arthralgias, rash, and the patient ___ diet to help manage his blood sugars and working closely with that. Low steady carb diet ___. Physical Examination: Vital Signs: Blood pressure 111/70, pulse 82 to 94, respiratory rate 16 to 18, temperature 98.1, oxy gen saturation 94%, weight 148 pounds, height 6 feet, BMI 20.1. General: Mr. Sanders is resting well. He is in no significant distress. He has no obvious focal defic its. issues. Otherwise, no fevers, chills, nausea, vomiting, myalgias, arthralgias. Laboratory Studies: No new laboratory studies over yesterday except blood sugars shari from 83 to 191 . X-ray/imaging: No new x-rays or imaging. Medications: Eliquis 2.5 mg twice daily, aspirin 81 mg daily, vitamin D 1000 units daily, Lexapro 10 mg daily, Pepcid 20 mg at bedtime, folic acid 1 mg daily, Amaryl 2 mg at breakfast. His Cozaar is 5 0 mg daily. Mild sliding scale of insulin. Milk of magnesia 30 mL daily for constipation, Namenda 5 mg twice daily, prednisone 10 mg daily, Crestor 20 mg at bedtime. Progress Made With Physical, Occupational, And Speech Therapy: With his therapy today, he did comple te bed mobility, seapjz-ht-ldp transfers with standby assistance, stand pivot transfer with contact g uard assistance. Simulated car transfer with contact guard assistance. Ambulated 250 feet with cont act guard assistance and another 100 feet without an assistive device and was able to do so, did have increased unsteadiness as he ended the ambulation without an assistive device. With his occupationa l therapy, propelled at a wheelchair working on body mechanics, did mem-xm-nbukv and transfers well o n that. Performed dynamic standing activity with a rolling walker and with the rolling walker. With his speech, he recalled 3 of 3 unrelated items after 5-minute delay independently. He maintained duncan stained attention for 5 minutes with svuxczvj-fr-cjsghic assistance. He had 70% accuracy with that. He could state 7-10 items within a category in 1 minute. Working memory was at 90% accur acy level for 4 units of information and minimum assistance was required in fact. Assessment And Plan: Mr. Sanders is an 84-year-old patient in rehabilitation unit with cerebral infarct more coordination and strength and more sensation as well. He does have decreased mobili ty, decreased physical functioning that is improving well. He does have dyslipidemia. He is on pred nisone by Dr. Cage. He has dementia, on Namenda. Cozaar for his hypertension, Amaryl for diabetes mellitus, Lexapro for depression. He has Eliquis for DVT risk reduction, aspirin for stroke risk red uction. His plan will be to continue with physical, occupational, and speech therapy for 3.5 hours, 5 of 7 days. He is managed by Dr. Rangel, his primary care physician, who is managing his comorbid cond itions. The patient's plan is to go home with family and continue therapy. He is doing excellent by outpatient service and likely speech, physical, and occupational may be required to continue given t he way the patient is at this point. BETTY/ELSA Voice ID: [id number] Report ID: [id number]
[2024-12-31 06:27] LABS: Absolute Lymphocytes (CBC) 1.6 K/uL (0.7-4.9); Hematocrit 34.8 % (39.6-49.0); Hemoglobin 12.3 g/dL (13.6-17.9); MCH 33.5 pg (27.0-35.0); MCHC 35.5 g/dL (32.0-36.0); MCV 94.3 fL (80-100); MPV 10.9 fL (7.6-11.3); Nucleated RBC Absolute Count 0.0 (0-0); Nucleated Red Blood Cells % 0.0 % (0-0); RBC Red Blood Cell Count 3.69 M/uL (4.33-5.43); White Blood Count 8.70 thou/uL (4.3-10.9)
[2024-12-31 06:46] LABS: Albumin 3.3 g/dL (3.4-5.0); Anion Gap 7.4 mEq/L (5.0-15.0); BUN Blood Urea Nitrogen 34.0 mg/dL (7-18); Glucose Level 110.0 mg/dL (74-106); Magnesium 2.0 mg/dL (1.6-2.4); Potassium 4.4 mEq/L (3.5-5.1); Prealbumin 21.3 mg/dL (20-40)
[2024-12-31] MEDS: POLYETHYL GLY 3350 17 GM/DOSE PO SCH (08:11)
[2024-12-31] MEDS: ASPIRIN EC 81 MG TAB PO SCH (08:11)
[2024-12-31] MEDS: DOCUSATE NA/SENNA CONC 1 TAB PO SCH (19:37)
--- NOTE | 2024-12-31 23:28 | PN ---
Date of Progress Note: 12/31/2024 Time: 1:20 p.m. Subjective: Mr. Sanders is ambulating very well around the unit despite the stroke. He does not have s ignificant weakness with more incoordination, but still he is working in excellent fashion and has no new complaints. Objective: No fevers, chills, nausea, vomiting, myalgias, arthralgias, rash. No other complaints. Physical Examination: Vital Signs: Blood pressure is 140/69, pulse 74, respiratory rate 17, temperature 97.2, oxygen satur ation 95%. Weight 148 pounds, height 6 feet, BMI 20.1. General: Again, Mr. Sanders is resting well. He is in no acute distress. HEENT: He is normocephalic, atraumatic. Sclerae anicteric. Oropharynx pink, moist. Neuro: He has no obvious cranial nerve deficits in terms of face asymmetry or sensory loss. Motor e xamination, he has near symmetric strength of upper and lower extremities and sensation is symmetric and he has mild incoordination in the left upper and lower extremity. Laboratory Studies: White blood cell count 8.7, hemoglobin 12.3, platelets 174. Sodium 142, potassi um 4.4, chloride 111, carbon dioxide 28, BUN 34, creatinine 1.05, glucose ranged from 98 to 305, calc ium 8.3, magnesium 2.0, albumin 3.3, prealbumin 21.3. X-ray/imaging: No new x-rays or imaging. Medications: Have been reviewed. He is on Eliquis 2.5 mg twice daily for DVT prophylaxis now in add ition to insulin sliding scale. He has milk of magnesia for constipation. He has Glycolax as well f or constipation and Senokot for constipation. In terms of physical and occupational therapy along with speech, with physical therapy, he did comple te mobility with supervision, modified independence that is bed mobility and multiple qfm-xt-zhlci tr ansfers and epaxu-wd-oyzfb transfers with supervision and modified independence. He was able to ambu late 500 feet and sang a song as he walked with physical therapist with contact guard assistance, had 2 episodes of loss of balance. He was up and down 20 steps with supervision and cuing was required. No loss of balance there. With occupational therapy, supervision for vxy-lm-[id number] transfers with a rolling walker, contact guard assistance, ambulated from room to gym with a rolling walker. Did [facility] standing balance exercises, stepping up and down with a pad with a rolling walker. With speech today, he did require moderate to minimum assistance for completing many tasks for over 5 minutes and had 70% accuracy rate. He recalled 4/4 unrelated items after 5-minute delay with minimum assistance . He could name 3 to 10 items within a category in 1 minute. Assessment And Plan: Mr. Sanders is an 84-year-old patient in rehabilitation unit with cerebral infarct ion involving the right brain, left body. He is making great progress with physical, occupational, a nd speech therapy. Still has some cognitive challenges. Comorbid conditions do include dyslipidemia , treated with Crestor, constipation with multiple medications. He has dementia addressed with Lucía Grijalva added for diabetes control. He does have Eliquis for DVT prophylaxis, aspirin for stroke risk reduction, Lexapro for depression, Pepcid for GE reflux. In terms of plan, he will continue wit h physical, occupational, and speech therapy 3.5 hours, 5 of 7 days. His list of comorbid condition medications will be continued and they have been stated above. Plan is for him to go home and contin ue therapy if he is doing excellent by outpatient therapy if there is . Follow up with Audra childs and Primary Care Physician as scheduled. SHON Voice ID: [id number] Report ID: [id number]
--- NOTE | 2025-01-01 07:49 | RAD REPORT ---
Exam:Abdomen 1 View (KUB) Clinical history: Abdominal pain FINDINGS: The bowel gas pattern is unremarkable. Large amount of stool present throughout the colon. Calcifications in the pelvis probably phleboliths
--- NOTE | 2025-01-01 13:28 | P.RH.PN ---
Estimated Length of Stay: 10 Expected Discharge Date: 01/05/25 Discharge Disposition Plan: Home Family Support: Yes Fpc Goal: Mobility, Transfers, Self Care Vital Signs: Last Vital Signs Temp 97.9 F 01/01/25 07:32 Pulse 82 01/01/25 07:32 Resp 16 01/01/25 07:32 BP 171/81 H 01/01/25 07:32 Pulse Ox 96 01/01/25 07:32 Laboratory: Laboratory Last Values WBC 8.70 thou/uL (4.3-10.9) 12/31/24 05:42 RBC 3.69 M/uL (4.33-5.43) L 12/31/24 05:42 Hgb 12.3 g/dL (13.6-17.9) L 12/31/24 05:42 Hct 34.8 % (39.6-49.0) L 12/31/24 05:42 MCV 94.3 fL (80-100) 12/31/24 05:42 MCH 33.5 pg (27.0-35.0) 12/31/24 05:42 MCHC 35.5 g/dL (32.0-36.0) 12/31/24 05:42 RDW 13.9 % (12.1-15.2) 12/31/24 05:42 Plt Count 174 thou/uL (152-406) 12/31/24 05:42 MPV 10.9 fL (7.6-11.3) 12/31/24 05:42 Neutrophils % 70.0 % (41.7-73.7) 12/31/24 05:42 Lymphocytes % 18.5 % (15.3-44.8) 12/31/24 05:42 Monocytes % 7.8 % (3.3-12.3) 12/31/24 05:42 Eosinophils % 3.1 % (0-4.4) 12/31/24 05:42 Basophils % 0.6 % (0-1.3) 12/31/24 05:42 Absolute Neutrophils 6.1 K/uL (1.8-8.0) 12/31/24 05:42 Absolute Lymphocytes 1.6 K/uL (0.7-4.9) 12/31/24 05:42 Absolute Monocytes 0.7 K/uL (0.1-1.3) 12/31/24 05:42 Absolute Eosinophils 0.3 K/uL (0-0.5) 12/31/24 05:42 Absolute Basophils 0.1 K/uL (0-0.5) 12/31/24 05:42 Sodium 142 mEq/L (136-145) 12/31/24 05:42 Potassium 4.4 mEq/L (3.5-5.1) 12/31/24 05:42 Chloride 111 mEq/L (98-107) H 12/31/24 05:42 Carbon Dioxide 28 mEq/L (21-32) 12/31/24 05:42 Anion Gap 7.4 mEq/L (5.0-15.0) 12/31/24 05:42 BUN 34 mg/dL (7-18) H 12/31/24 05:42 Creatinine 1.05 mg/dL (0.70-1.30) 12/31/24 05:42 Est GFR (CKD-EPI) 71 ml/min (=/>90) L 12/31/24 05:42 Glucose 110 mg/dL (74-106) H 12/31/24 05:42 POC Glucose 153 mg/dL (65-120) H 01/01/25 11:31 Hemoglobin A1c 6.2 % (4.2-6.3) 12/29/24 06:15 Calcium 8.3 mg/dL (8.5-10.1) L 12/31/24 05:42 Magnesium 2.0 mg/dL (1.6-2.4) 12/31/24 05:42 Albumin 3.3 g/dL (3.4-5.0) L 12/31/24 05:42 Prealbumin 21.3 mg/dL (20-40) 12/31/24 05:42 Urine Color Light-yellow (Yellow) 12/28/24 23:00 Urine Clarity Clear (Clear) 12/28/24 23:00 Urine pH 5.5 (5.0-7.0) 12/28/24 23:00 Ur Specific [place] 1.021 (1.005-1.030) 12/28/24 23:00 Glucose (UA)(Auto) Negative (Negative) 12/28/24 23:00 Urine Ketones Negative (Negative) 12/28/24 23:00 Urine Blood Negative (Negative) 12/28/24 23:00 Urine Nitrite Negative (Negative) 12/28/24 23:00 Urine Bilirubin Negative (Negative) 12/28/24 23:00 Urine Urobilinogen Normal (Normal) 12/28/24 23:00 Ur Leukocyte Esterase Negative Philip/uL (Negative) 12/28/24 23:00 Urine Total Protein Negative (Negative) 12/28/24 23:00 Weight: 148 lb Wound Present: No Closed Surgical Incision Present: No Negative Pressure Wound Therapy Present: No Physician Update: Labs reviewed and are stable. He has mild cognitive impairment. He has slow gait and possible Parkinsonism. Will try Sinemet 25/100 mg q AM. 18 on the SLUMS and 15 on the BIMS. Met 2/4 speech STG. Supervision to mod I with bed mobility and transfers. RW 500' with CGA, 20 stairs with supervision. Met 4/4 STG with PT. With OT 3/5 LTG and 2/5 STG. Summary: Patient's care plan and senior living goals have been reviewed and revised as necessary. Please see the Rehabilitation Signature page for all necessary signatures.
[2025-01-02] MEDS: CARBIDOPA/LEVODOPA 25/100 TAB PO SCH (08:32)
[2025-01-04 07:06] LABS: Absolute Lymphocytes (CBC) 1.8 K/uL (0.7-4.9); Hematocrit 36.0 % (39.6-49.0); Hemoglobin 12.6 g/dL (13.6-17.9); MCH 33.3 pg (27.0-35.0); MCHC 35.0 g/dL (32.0-36.0); MCV 95.1 fL (80-100); MPV 10.0 fL (7.6-11.3); Nucleated RBC Absolute Count 0.0 (0-0); Nucleated Red Blood Cells % 0.0 % (0-0); RBC Red Blood Cell Count 3.79 M/uL (4.33-5.43); White Blood Count 8.70 thou/uL (4.3-10.9)
[2025-01-04 07:27] LABS: Albumin 3.4 g/dL (3.4-5.0); Anion Gap 5.5 mEq/L (5.0-15.0); BUN Blood Urea Nitrogen 25.0 mg/dL (7-18); Glucose Level 89.0 mg/dL (74-106); Magnesium 2.0 mg/dL (1.6-2.4); Potassium 4.5 mEq/L (3.5-5.1); Prealbumin 20.6 mg/dL (20-40)
--- NOTE | 2025-01-04 13:05 | P.HP ---
Patient History Date of Service: 01/04/25 Reason for admission: RECURRENT CVA History of Present Illness: CHELLE HAS HAD CVA WITH ATAXIA, AND LATER SECOND MRI SHOWED MORE STROKES. DR. DELONG SUSPECTED EMBOLISM BUT THERE IS NO SIGN OF A FIB OR ENDOCARDITIS. ATHEROSCLEROTIC PLAQUE RUPTURE MAY HAVE CAUSED IT. HE WALKED 17 ROUNDS YESTERDAY WITH A WALKER. Allergies No Known Allergies Allergy (Verified 09/01/24 13:08) Home medications list reviewed: Yes Home Medications: Clopidogrel Bisulfate [Plavix*] 75 mg PO DAILY #90 07/15/24 Folic Acid 1 mg PO DAILY #90 07/15/24 Losartan Potassium 50 mg PO DAILY 07/15/24 Aspirin [Aspirin EC 325 MG] 1 tab PO BEDTIME 12/28/24 Cholecalciferol (Vitamin D3) [Vitamin D 1000 Iu Tab*] 1 tab PO DAILY 12/28/24 Escitalopram Oxalate [Lexapro] 10 mg PO DAILY 12/28/24 Famotidine [Pepcid*] 20 mg PO BEDTIME 12/28/24 Glimepiride 2 mg PO BREAKFAST 12/28/24 Memantine HCl 5 mg PO BID 12/28/24 Mirabegron [Myrbetriq] 1 tab PO DAILY 12/28/24 Risedronate Sodium [Actonel] 150 mg PO Q30D 12/28/24 Rosuvastatin [Crestor*] 20 mg PO BEDTIME 12/28/24 predniSONE [Deltasone*] 10 mg PO DAILY 12/28/24 - Past Medical/Surgical History Has patient received pneumonia vaccine in the past: Yes Diabetic: Yes -: DM -: Aortic & carotid stenosis -: Pulmonary HTN -: Diabetic neuropathy -: multiple CVAs -: Basal Cell carcinoma -: 11/03/24 heart valve replacement -: appendectomy -: inguinal hernia sx -: ear sx -: scrotum cyst -: cataracts sx -: Mohs sx of cheek BCC - Family History Father Notes: MS Mother -: Diabetes - Social History Smoking Status: Never smoker Alcohol use: No CD- Drugs: No Caffeine use: Yes Place of Residence: Home Review of Systems 10-point ROS is otherwise unremarkable Physical Examination - Vital Signs Temperature: 97.9 F Blood Pressure: 167/84 Pulse: 94 Respirations: 16 Pulse Ox (%): 98 - Physical Exam General: Alert, In no apparent distress HEENT: Atraumatic, PERRLA, Mucous membr. moist/pink, EOMI, Sclerae nonicteric Neck: Supple, 2+ carotid pulse no bruit, No LAD, Without JVD or thyroid abnormality Respiratory: Clear to auscultation bilaterally, Normal air movement Cardiovascular: Regular rate/rhythm, Normal S1 S2 Gastrointestinal: Normal bowel sounds, No tenderness Musculoskeletal: No tenderness Integumentary: No rashes Neurological: Normal speech, Abnormal gait (UNSTEADY AND FALL RISK.) Lymphatics: No axilla or inguinal lymphadenopathy - Studies Laboratory Data (last 24 hrs) 01/04/25 01/04/25 06:40 06:40 WBC 8.70 Hgb 12.6 L Hct 36.0 L Plt Count 165 Sodium 142 Potassium 4.5 BUN 25 H Creatinine 0.85 Glucose 89 Magnesium 2.0 Assessment and Plan - Problems (Diagnosis) (1) Cerebellar stroke Current Visit: Yes Status: Acute Plan: FERREIRA IN PROCESS BY DR DELONG AND DR. LINN. CONT PT. 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 NO CHANGES. CONTINUE MEDS. A1C FU. (3) Unstable gait Current Visit: No Status: Chronic Plan: CONT PT EXERCISES. - Advance Directives Does patient have a Living Will: No Does patient have a Durable POA for Healthcare: No
--- NOTE | 2025-01-05 01:00 | PN ---
Date of Progress Note: 01/04/2025 Time: 1:15. Subjective: Mr. Sanders is doing very well, ambulating well on the unit. His balance is better, coordi nation, gait, speech, thinking and he is ready for discharge in the morning. He was seen by Dr. Cinthya brown, his primary care physician today. Objective: No fevers, chills, nausea, vomiting, myalgias, arthralgias, or rash. No psychiatric comp laints. No other positives on the systems review. Physical Examination: Vital Signs: Blood pressure 137/57, pulse 90, respiratory rate 16, temperature 97.9, oxygen saturati on 97%. General: Mr. Sanders is standing in his room as modified independent with all activities actually towar ds independence. HEENT: He is normocephalic, atraumatic. Sclerae anicteric. Oropharynx pink, moist. Neck: Supple. Neuro: Despite the patient's stroke, he has very little evidence of that, just some incoordination o n the left side, but doing very well. Laboratory Studies: White blood cell count 8.7, hemoglobin 12.6, platelets 165. Sodium 142, potassi um 4.5, chloride 111, carbon dioxide 30, BUN 25, creatinine 0.85, glucose ranged from 89-225, calcium 8.2, magnesium 2.0, albumin 3.4, prealbumin 20.6. X-ray/imaging: No new x-rays or imaging. Medications: Have been reviewed and are unchanged. Progress Made With Physical, Occupational, And Speech Therapy: With physical therapy today, complete d multiple [id number] transfers and [id number] transfers with modified independence. Simulated car transfer done with modified independence. Ambulated 500 feet with a single prong cane and did s o with some help for his balance, but with supervision. Was up and down 15 stairs with supervision w zhang modified independence. With his occupational therapy, supervision for functional mobility activi ties, independent for upper and lower body dressing, showering, and toileting, oral hygiene and groom ing, also eating independently. With his speech, he scored 15/15 on the BIMS and SLUMS score improve d to 24/30, showing mild cognitive impairment and the therapist indicated the patient had a baseline level of cognitive functioning and he will continue with physical, occupational, and speech. Assessment And Plan: Mr. Sanders is an 84-year-old patient with stroke affecting coordination, posterio r circulation stroke on the left side. He has recovered very well with no obvious deficits in terms of stroke. He does not have any significant decreased mobility or decreased physical functioning and still has symptoms of Parkinson disease and was started on Sinemet 25/100 and doing very well with t hat. It will be continued. He has other medications also continued for hypertension, for dementia, dyslipidemia, constipation, stroke risk reduction, and DVT risk reduction. His plan will be until lissy deleon continue with physical, occupational, and speech therapy. Continue his list of medications. He will be ready for discharge in the morning. Continue therapy on outpatient basis at the [facility] facility [facility]. He is very happy with that. He will follow up with Dr. Cage, his [facility] physician, who did come by and saw him today. We will continue with carbidopa/levodopa for Parkinson's disease, which was recently diagnosed. BETTY/ELSA Voice ID: [id number] Report ID: [id number]
[2025-01-05 06:36] VITALS: BP 147/85; TEMP 98
[2025-01-05] MEDS: CARBIDOPA/LEVODOPA 25/100 TAB PO SCH (06:57)
[2025-01-11] MEDS ORDERED: RISEDRONATE 150 MG PO SCH (08:00)
== END 2025-01-05 10:08 | disposition home or self-care (01) | DRG 57 ==
LOC: 5TH 19:57
PROVIDERS: ADMIT Internal Medicine; ATTEND Internal Medicine
DX: I69.354 Hemiplegia and hemiparesis following cerebral infarction affecting left non-dominant side (principal); I69.398 Other sequelae of cerebral infarction; R27.8 Other lack of coordination; R26.89 Other abnormalities of gait and mobility; E11.42 Type 2 diabetes mellitus with diabetic polyneuropathy; R32 Unspecified urinary incontinence; G20.A1 Parkinson's disease without dyskinesia, without mention of fluctuations; F02.80 Dementia in other diseases classified elsewhere, unspecified severity, without behavioral disturbance, psychotic disturbance, mood disturbance, and anxiety; I10 Essential (primary) hypertension; I27.20 Pulmonary hypertension, unspecified; I71.9 Aortic aneurysm of unspecified site, without rupture; E78.5 Hyperlipidemia, unspecified; F32.A Depression, unspecified; K21.9 Gastro-esophageal reflux disease without esophagitis; K59.00 Constipation, unspecified; Z91.81 History of falling; Z95.2 Presence of prosthetic heart valve
CPT/HCPCS: 36415; 74018; 80048; 81003; 82040; 82947; 83036; 83735; 84134; 85025; 92523; 93306; 97110; 97112; 97116; 97129; 97162; 97165; 97530; 97542; J7512